=== PATIENT | male | born 1970 | race Caucasian/White ===

== ENCOUNTER 2017-01-14 18:49 | Inpatient (IN) | payer OTHER ==
[~2017-01-14] VITALS: Ht 160 cm; Wt 89.8 kg
[2017-01-14 19:27] LABS: BASOPHIL % 0.8 % (0-2); PLATELET COUNT 146 x10^3mcL (130-400); RED CELL DISTRIBUTION WIDTH 13.5 % (11.5-14.5); UA SPECIFIC GRAVITY 1.025 (1.005-1.035); microscopic required? YES; urine erythrocyte 2+ (NEGATIVE)
[2017-01-14 19:47] LABS: CALCIUM 8.9 mg/dL (8.5-10.1); CARBON DIOXIDE 28.4 mmol/L (21-32); CHLORIDE SERUM 102 mmol/L (98-107); CREATININE SERUM 0.7 mg/dL (0.7-1.3); GFR1 > 60 mL/min; GLUCOSE SERUM 194 mg/dL (74-106); POTASSIUM SERUM 3.8 mmol/L (3.5-5.1); SODIUM SERUM 141 mmol/L (136-145)
[2017-01-14 19:48] LABS: AMPHETAMINE QUAL UR NONE DETECTED (NEG <=1000)
[2017-01-14 19:53] LABS: ALKALINE PHOSPHATASE 134 U/L (46-116); ALT/SGPT 37 U/L (16-63); AST/SGOT 48 U/L (15-37); BILIRUBIN TOTAL 0.8 mg/dL (0.20-1.00); CHOLESTEROL 165 mg/dL (<200); CHOLESTEROL/HDL RATIO 2.9; HDL CHOLESTEROL 57 mg/dL (40-60); LIPASE 190 IU/L (73-393); TRIGLYCERIDES 86 mg/dL (<150)
[2017-01-14 19:58] LABS: ALBUMIN 3.3 g/dL (3.4-5.0)
[2017-01-14 19:59] LABS: T3 TOTAL 0.85 ng/mL
[2017-01-14 20:12] LABS: FREE T4 0.9 ng/dL (0.76-1.46); FREE THYROXINE INDEX 2.6 ug/dL (1.4-4.5); T4(THYROXINE) 7.1 ug/dL (4.7-13.3)
[2017-01-14] MEDS ORDERED: CYCLOBENZAPRINE10 MG PO (22:07)
[2017-01-14] MEDS ORDERED: ALLOPURINOL100 MG PO (22:07)
[2017-01-14] MEDS ORDERED: PROPRANOLOL HCL10 MG PO (22:08)
[2017-01-14] MEDS ORDERED: BAYER ASPIRIN R81 MG PO (22:08)
[2017-01-14] MEDS ORDERED: COLACE100 MG PO (22:08)
[2017-01-14] MEDS ORDERED: SIMVASTATIN10 M1 PO (22:08)
[2017-01-14] MEDS ORDERED: MIRALAX17 GM/Dose PO (22:09)
[2017-01-14 22:53] VITALS: BP 135/100
[2017-01-14 22:54] VITALS: BP 135/100
[2017-01-15 01:58] VITALS: BP 135/92
[2017-01-15 02:12] LABS: MAGNESIUM 1.2 mg/dL (1.8-2.4); PHOSPHOROUS 3.6 mg/dL (2.5-4.9)
[2017-01-15 04:59] VITALS: BP 131/99
[2017-01-15 05:56] LABS: BASOPHIL % 0.5 % (0-2); RED CELL DISTRIBUTION WIDTH 13.6 % (11.5-14.5)
[2017-01-15 06:13] LABS: PLATELET COUNT 128 x10^3mcL (130-400)
[2017-01-15 06:24] LABS: CALCIUM 8.3 mg/dL (8.5-10.1); CARBON DIOXIDE 28.7 mmol/L (21-32); CHLORIDE SERUM 103 mmol/L (98-107); GFR1 > 60 mL/min; GLUCOSE SERUM 184 mg/dL (74-106); POTASSIUM SERUM 4.3 mmol/L (3.5-5.1); SODIUM SERUM 139 mmol/L (136-145); URIC ACID 8.4 mg/dL (3.5-7.2)
[2017-01-15 09:35] VITALS: BP 102/66
[2017-01-15 16:55] VITALS: BP 121/94
[2017-01-15 21:46] VITALS: BP 125/92
[2017-01-16 05:59] LABS: BASOPHIL % 0.6 % (0-2); PLATELET COUNT 139 x10^3mcL (130-400); RED CELL DISTRIBUTION WIDTH 13.7 % (11.5-14.5)
[2017-01-16 06:11] VITALS: BP 122/90
[2017-01-16 06:24] LABS: CALCIUM 8.5 mg/dL (8.5-10.1); CARBON DIOXIDE 26.8 mmol/L (21-32); CHLORIDE SERUM 101 mmol/L (98-107); CREATININE SERUM 0.9 mg/dL (0.7-1.3); GFR1 > 60 mL/min; GLUCOSE SERUM 118 mg/dL (74-106); MAGNESIUM 1.9 mg/dL (1.8-2.4); POTASSIUM SERUM 4.7 mmol/L (3.5-5.1); SODIUM SERUM 135 mmol/L (136-145)
[2017-01-16 14:00] VITALS: BP 114/89
[2017-01-16 16:59] VITALS: BP 109/84
[2017-01-16 20:39] VITALS: BP 108/84
[2017-01-17 05:09] VITALS: BP 119/85
[2017-01-17 06:05] LABS: CALCIUM 8.7 mg/dL (8.5-10.1); CARBON DIOXIDE 26.3 mmol/L (21-32); CHLORIDE SERUM 101 mmol/L (98-107); GFR1 > 60 mL/min; GLUCOSE SERUM 120 mg/dL (74-106); MAGNESIUM 1.9 mg/dL (1.8-2.4); PHOSPHOROUS 4.4 mg/dL (2.5-4.9); POTASSIUM SERUM 4.9 mmol/L (3.5-5.1); SODIUM SERUM 134 mmol/L (136-145)
[2017-01-17 06:07] LABS: BASOPHIL % 0.4 % (0-2); PLATELET COUNT 149 x10^3mcL (130-400); RED CELL DISTRIBUTION WIDTH 13.9 % (11.5-14.5)
[2017-01-17 08:53] VITALS: BP 111/79
[2017-01-17] MEDS ORDERED: THI100 PO (10:06)
[2017-01-17] MEDS ORDERED: FOL1 PO (10:07)
[2017-01-17] MEDS ORDERED: LAC PO (10:07)
[2017-01-17] MEDS ORDERED: ATI1 PO (10:08)
[2017-01-17] MEDS ORDERED: COR3 PO (10:09)
[2017-01-17] MEDS ORDERED: ALD25 PO (10:09)
[2017-01-17] MEDS ORDERED: GLU500 PO (10:44)
[2017-01-17] MEDS ORDERED: CIP500 PO (10:47)
[2017-01-17 10:59] VITALS: BP 111/79
== END 2017-01-17 12:55 | disposition home or self-care (01) | DRG 280 ==
LOC: ED 18:49 → DU 22:07
PROVIDERS: Specialist; ADMIT Family Medicine
DX: K70.31 Alcoholic cirrhosis of liver with ascites (principal); N17.0 Acute kidney failure with tubular necrosis; I50.43 Acute on chronic combined systolic (congestive) and diastolic (congestive) heart failure; G92 Toxic encephalopathy; D69.6 Thrombocytopenia, unspecified; D64.9 Anemia, unspecified; F10.229 Alcohol dependence with intoxication, unspecified; E11.9 Type 2 diabetes mellitus without complications; E78.00 Pure hypercholesterolemia, unspecified; I11.0 Hypertensive heart disease with heart failure; Y90.0 Blood alcohol level of less than 20 mg/100 ml
CPT/HCPCS: 36600; 82962; 83880; 84439; G0480; J0696; J1885; J2060; J2270; J2405; J3010; J3411; J3475; J3490; J7030; Q0092

== ENCOUNTER 2017-01-18 20:15 | Emergency (ER) | payer OTHER ==
[~2017-01-18 20:15] MED LIST: ALD25 PO; ALLOPURINOL100 MG PO; ATI1 PO; BAYER ASPIRIN R81 MG PO; CIP500 PO; COLACE100 MG PO; COR3 PO; CYCLOBENZAPRINE10 MG PO; FOL1 PO; GLU500 PO; LAC PO; MIRALAX17 GM/Dose PO; PROPRANOLOL HCL10 MG PO; SIMVASTATIN10 M1 PO; THI100 PO
[2017-01-18 21:01] LABS: PLATELET COUNT 197 x10^3mcL (130-400); RED CELL DISTRIBUTION WIDTH 14.1 % (11.5-14.5)
[2017-01-18 21:12] LABS: CALCIUM 9.4 mg/dL (8.5-10.1); CARBON DIOXIDE 28.5 mmol/L (21-32); CHLORIDE SERUM 102 mmol/L (98-107); GFR1 > 60 mL/min; GLUCOSE SERUM 135 mg/dL (74-106); POTASSIUM SERUM 4.3 mmol/L (3.5-5.1); SODIUM SERUM 137 mmol/L (136-145)
[2017-01-18 21:17] LABS: ALKALINE PHOSPHATASE 142 U/L (46-116); ALT/SGPT 32 U/L (16-63); AST/SGOT 37 U/L (15-37); BILIRUBIN TOTAL 0.9 mg/dL (0.20-1.00); LIPASE 106 IU/L (73-393)
[2017-01-18 21:19] LABS: ALBUMIN 3.3 g/dL (3.4-5.0); TOTAL PROTEIN, SERUM 9.1 g/dL (6.4-8.2)
[2017-01-18 23:48] VITALS: BP 138/97
== END 2017-01-18 23:48 | disposition home or self-care (01) ==
LOC: ED 20:15
PROVIDERS: Emergency Medicine
DX: K70.31 Alcoholic cirrhosis of liver with ascites (principal); E78.00 Pure hypercholesterolemia, unspecified; E11.9 Type 2 diabetes mellitus without complications; I10 Essential (primary) hypertension
CPT/HCPCS: 83880; J1940; J2405; J3010; Q0092

== ENCOUNTER 2018-03-23 14:05 | Inpatient (IN) | payer OTHER ==
[~2018-03-23] VITALS: Ht 162.6 cm; Wt 77.2 kg
[2018-03-23 14:26] VITALS: Ht 162.6 cm; Wt 77.2 kg
[2018-03-23] MEDS ORDERED: METFORMIN HCL500 MG PO (17:21)
[2018-03-23 17:23] LABS: BASOPHIL % 1.5 % (0-2); PLATELET COUNT 143 x10^3mcL (130-400); RED CELL DISTRIBUTION WIDTH 13.6 % (11.5-14.5)
[2018-03-23 17:32] LABS: CALCIUM 8.6 mg/dL (8.5-10.1); CARBON DIOXIDE 28.6 mmol/L (21-32); CHLORIDE SERUM 101 mmol/L (98-107); CREATININE SERUM 0.9 mg/dL (0.7-1.3); GFR1 > 60 mL/min; GLUCOSE SERUM 129 mg/dL (74-106); SODIUM SERUM 138 mmol/L (136-145)
[2018-03-23 17:45] LABS: ALKALINE PHOSPHATASE 95 U/L (46-116); ALT/SGPT 29 U/L (16-63); AST/SGOT 33 U/L (15-37); BILIRUBIN TOTAL 1.1 mg/dL (0.20-1.00); FREE T4 1.08 ng/dL (0.76-1.46)
[2018-03-23 17:46] LABS: ALBUMIN 3.1 g/dL (3.4-5.0)
[2018-03-23 19:38] LABS: UA SPECIFIC GRAVITY 1.015 (1.005-1.035); microscopic required? YES; urine erythrocyte 1+ (NEGATIVE)
[2018-03-23 19:48] LABS: AMPHETAMINE QUAL UR POSITIVE (See below)
[2018-03-23 20:17] VITALS: BP 117/90
[2018-03-23 20:53] LABS: CHOLESTEROL/HDL RATIO 2.9; MAGNESIUM 1.8 mg/dL (1.8-2.4); PHOSPHOROUS 4.2 mg/dL (2.5-4.9)
[2018-03-24 05:48] VITALS: BP 135/102
[2018-03-24 06:20] LABS: BASOPHIL % 0.6 % (0-2); RED CELL DISTRIBUTION WIDTH 13.5 % (11.5-14.5)
[2018-03-24 06:35] LABS: PLATELET COUNT 121 x10^3mcL (130-400)
[2018-03-24 06:50] LABS: CALCIUM 8.7 mg/dL (8.5-10.1); CARBON DIOXIDE 28.2 mmol/L (21-32); CHLORIDE SERUM 105 mmol/L (98-107); CREATININE SERUM 0.9 mg/dL (0.7-1.3); GFR1 > 60 mL/min; GLUCOSE SERUM 153 mg/dL (74-106); MAGNESIUM 2.1 mg/dL (1.8-2.4); PHOSPHOROUS 4.7 mg/dL (2.5-4.9); SODIUM SERUM 142 mmol/L (136-145)
[2018-03-24 09:38] VITALS: BP 127/95
[2018-03-24 13:51] VITALS: BP 109/79; BP 109/9
[2018-03-24 17:08] VITALS: BP 116/85
[2018-03-24 22:15] VITALS: BP 106/72
[2018-03-25 06:19] VITALS: BP 114/78
[2018-03-25 06:40] LABS: BASOPHIL % 0.5 % (0-2); RED CELL DISTRIBUTION WIDTH 13.4 % (11.5-14.5)
[2018-03-25 06:42] LABS: PLATELET COUNT 105 x10^3mcL (130-400)
[2018-03-25 06:54] LABS: CALCIUM 8.5 mg/dL (8.5-10.1); CARBON DIOXIDE 26.5 mmol/L (21-32); CHLORIDE SERUM 102 mmol/L (98-107); GFR1 > 60 mL/min; GLUCOSE SERUM 229 mg/dL (74-106); MAGNESIUM 1.6 mg/dL (1.8-2.4); PHOSPHOROUS 4.8 mg/dL (2.5-4.9); POTASSIUM SERUM 3.4 mmol/L (3.5-5.1); SODIUM SERUM 138 mmol/L (136-145)
[2018-03-25 09:49] VITALS: BP 113/85
[2018-03-25 14:11] VITALS: BP 115/75
[2018-03-25 17:13] VITALS: BP 105/76
[2018-03-25 21:28] VITALS: BP 115/86
[2018-03-26 05:35] VITALS: BP 100/63
[2018-03-26 06:14] LABS: BASOPHIL % 0.7 % (0-2); RED CELL DISTRIBUTION WIDTH 13.5 % (11.5-14.5)
[2018-03-26 06:17] LABS: PLATELET COUNT 121 x10^3mcL (130-400)
[2018-03-26 06:24] LABS: CALCIUM 8.5 mg/dL (8.5-10.1); CARBON DIOXIDE 30.9 mmol/L (21-32); CHLORIDE SERUM 102 mmol/L (98-107); CREATININE SERUM 1.1 mg/dL (0.7-1.3); GFR1 > 60 mL/min; GLUCOSE SERUM 166 mg/dL (74-106); MAGNESIUM 1.6 mg/dL (1.8-2.4); PHOSPHOROUS 3.9 mg/dL (2.5-4.9); POTASSIUM SERUM 3.6 mmol/L (3.5-5.1); SODIUM SERUM 140 mmol/L (136-145)
[2018-03-26 08:26] VITALS: BP 98/66
[2018-03-26] MEDS ORDERED: SIMETHICONE80 MG CH (10:35)
[2018-03-26] MEDS ORDERED: LIB25 PO (10:48)
[2018-03-26 12:00] VITALS: BP 112/78
== END 2018-03-26 12:41 | disposition home or self-care (01) | DRG 280 ==
LOC: ED 14:05 → DU 18:39
PROVIDERS: Emergency Medicine; General Practice
DX: K70.31 Alcoholic cirrhosis of liver with ascites (principal); N17.0 Acute kidney failure with tubular necrosis; G92 Toxic encephalopathy; I50.43 Acute on chronic combined systolic (congestive) and diastolic (congestive) heart failure; E44.0 Moderate protein-calorie malnutrition; F10.229 Alcohol dependence with intoxication, unspecified; E11.65 Type 2 diabetes mellitus with hyperglycemia; F41.9 Anxiety disorder, unspecified; M10.9 Gout, unspecified; I11.0 Hypertensive heart disease with heart failure; Y90.0 Blood alcohol level of less than 20 mg/100 ml; I25.2 Old myocardial infarction; Z79.82 Long term (current) use of aspirin; Z68.34 Body mass index [BMI] 34.0-34.9, adult; Z79.84 Long term (current) use of oral hypoglycemic drugs; Z23 Encounter for immunization
CPT/HCPCS: 82962; 83880; 84439; 90658; G0480; J1940; J3475; Q0092

== ENCOUNTER 2018-04-20 12:35 | Inpatient (IN) | payer OTHER ==
[~2018-04-20] VITALS: Ht 162.6 cm; Wt 84.1 kg
[~2018-04-20 12:35] MED LIST changes: +LIB25 PO; +METFORMIN HCL500 MG PO; +SIMETHICONE80 MG CH
[2018-04-20 12:43] VITALS: Ht 162.6 cm; Wt 84.1 kg
[2018-04-20 15:30] LABS: BASOPHIL % 1.6 % (0-2); RED CELL DISTRIBUTION WIDTH 13.8 % (11.5-14.5)
[2018-04-20 15:35] LABS: PLATELET COUNT 126 x10^3mcL (130-400)
[2018-04-20 15:44] LABS: CALCIUM 8.5 mg/dL (8.5-10.1); CARBON DIOXIDE 29.5 mmol/L (21-32); CHLORIDE SERUM 104 mmol/L (98-107); GFR1 > 60 mL/min; GLUCOSE SERUM 123 mg/dL (74-106); POTASSIUM SERUM 4.2 mmol/L (3.5-5.1); SODIUM SERUM 139 mmol/L (136-145)
[2018-04-20 15:48] LABS: ALBUMIN 3.5 g/dL (3.4-5.0); ALKALINE PHOSPHATASE 99 U/L (46-116); ALT/SGPT 25 U/L (16-63); AST/SGOT 18 U/L (15-37); BILIRUBIN TOTAL 0.67 mg/dL (0.20-1.00)
[2018-04-20 15:51] LABS: TOTAL PROTEIN, SERUM 8.5 g/dL (6.4-8.2)
[2018-04-20] MEDS ORDERED: FUROSEMIDE20 MG PO (16:30)
[2018-04-20] MEDS ORDERED: INDOMETHACIN50 MG PO (16:30)
[2018-04-20] MEDS ORDERED: METFORMIN HCL1000 MG PO (16:31)
[2018-04-20] MEDS ORDERED: VIT D2 PO (16:32)
[2018-04-20] MEDS ORDERED: CVS GAS RELIEF PO (16:32)
[2018-04-20] MEDS ORDERED: ALDACTONE25 MG PO (16:33)
[2018-04-20 18:52] VITALS: BP 148/110
[2018-04-20 19:44] LABS: MAGNESIUM 1.6 mg/dL (1.8-2.4); PHOSPHOROUS 3.5 mg/dL (2.5-4.9)
[2018-04-20 20:37] VITALS: BP 131/93
[2018-04-20 21:01] LABS: UA SPECIFIC GRAVITY 1.025 (1.005-1.035); microscopic required? YES; urine erythrocyte 2+ (NEGATIVE)
[2018-04-20 23:57] VITALS: BP 131/93
[2018-04-21 05:14] VITALS: BP 127/96
[2018-04-21 06:27] LABS: BASOPHIL % 0.6 % (0-2); CALCIUM 8.5 mg/dL (8.5-10.1); CARBON DIOXIDE 28.3 mmol/L (21-32); CHLORIDE SERUM 103 mmol/L (98-107); CREATININE SERUM 0.9 mg/dL (0.7-1.3); GFR1 > 60 mL/min; GLUCOSE SERUM 122 mg/dL (74-106); MAGNESIUM 1.5 mg/dL (1.8-2.4); PLATELET COUNT 130 x10^3mcL (130-400); POTASSIUM SERUM 3.8 mmol/L (3.5-5.1); RED CELL DISTRIBUTION WIDTH 13.8 % (11.5-14.5); SODIUM SERUM 139 mmol/L (136-145)
[2018-04-21 08:00] VITALS: BP 126/95
[2018-04-21 18:26] VITALS: BP 128/99
[2018-04-21 20:52] VITALS: BP 128/96
[2018-04-22 05:12] VITALS: BP 122/85
[2018-04-22 09:40] VITALS: BP 116/79
[2018-04-22 14:00] VITALS: BP 121/78
[2018-04-22] MEDS ORDERED: LASIX20 MG PO (15:08)
[2018-04-22] MEDS ORDERED: GAS RELIEF 8080 MG PO (15:08)
[2018-04-22] MEDS ORDERED: TUMS REGULAR S500 MG CH (15:08)
[2018-04-22] MEDS ORDERED: DULCOLAX10 M1 RC (15:08)
== END 2018-04-22 16:18 | disposition home or self-care (01) | DRG 280 ==
LOC: ED 12:35 → DU 16:31
PROVIDERS: Emergency Medicine; Internal Medicine
DX: K70.31 Alcoholic cirrhosis of liver with ascites (principal); N17.0 Acute kidney failure with tubular necrosis; F10.20 Alcohol dependence, uncomplicated; E11.65 Type 2 diabetes mellitus with hyperglycemia; E83.42 Hypomagnesemia; R80.9 Proteinuria, unspecified; I11.0 Hypertensive heart disease with heart failure; F17.210 Nicotine dependence, cigarettes, uncomplicated; F15.90 Other stimulant use, unspecified, uncomplicated; F12.90 Cannabis use, unspecified, uncomplicated; I50.42 Chronic combined systolic (congestive) and diastolic (congestive) heart failure; M10.9 Gout, unspecified; Y90.0 Blood alcohol level of less than 20 mg/100 ml; Z68.36 Body mass index [BMI] 36.0-36.9, adult; Z79.84 Long term (current) use of oral hypoglycemic drugs; Z91.14 Patient's other noncompliance with medication regimen; Z79.899 Other long term (current) drug therapy; Z71.41 Alcohol abuse counseling and surveillance of alcoholic
CPT/HCPCS: 82962; 83880; 90732; J0696; J1940; J7620; Q0092

== ENCOUNTER 2018-06-07 12:49 | Emergency (ER) | payer OTHER ==
[~2018-06-07] VITALS: Ht 160 cm; Wt 93.0 kg
[~2018-06-07 12:49] MED LIST changes: +ALDACTONE25 MG PO; +CVS GAS RELIEF PO; +DULCOLAX10 M1 RC; +FUROSEMIDE20 MG PO; +GAS RELIEF 8080 MG PO; +INDOMETHACIN50 MG PO; +LASIX20 MG PO; +METFORMIN HCL1000 MG PO; +TUMS REGULAR S500 MG CH; +VIT D2 PO
[2018-06-07 12:58] VITALS: Ht 160 cm; Wt 93.0 kg
[2018-06-07 14:00] LABS: BASOPHIL % 0.7 % (0-2)
[2018-06-07 14:01] LABS: PLATELET COUNT 126 x10^3mcL (130-400); RED CELL DISTRIBUTION WIDTH 15.9 % (11.5-14.5)
[2018-06-07 14:28] LABS: CARBON DIOXIDE 28.5 mmol/L (21-32); CHLORIDE SERUM 104 mmol/L (98-107); CREATININE SERUM 0.8 mg/dL (0.7-1.3); GFR1 > 60 mL/min; GLUCOSE SERUM 137 mg/dL (74-106); POTASSIUM SERUM 3.9 mmol/L (3.5-5.1); SODIUM SERUM 143 mmol/L (136-145)
[2018-06-07 14:32] LABS: ALKALINE PHOSPHATASE 97 U/L (46-116); ALT/SGPT 24 U/L (16-63); AST/SGOT 23 U/L (15-37); BILIRUBIN TOTAL 1.09 mg/dL (0.20-1.00)
[2018-06-07 14:33] LABS: ALBUMIN 3.2 g/dL (3.4-5.0); TOTAL PROTEIN, SERUM 8.3 g/dL (6.4-8.2)
[2018-06-07 15:23] LABS: AMPHETAMINE QUAL UR NONE DETECTED (See below)
[2018-06-07 15:41] VITALS: BP 139/95
== END 2018-06-07 15:41 | disposition home or self-care (01) ==
LOC: ED 12:49
PROVIDERS: Emergency Medicine
DX: K70.31 Alcoholic cirrhosis of liver with ascites (principal); I11.9 Hypertensive heart disease without heart failure; F10.20 Alcohol dependence, uncomplicated; E11.9 Type 2 diabetes mellitus without complications; F41.9 Anxiety disorder, unspecified; E78.00 Pure hypercholesterolemia, unspecified
CPT/HCPCS: G0480; J1940; Q0092

== ENCOUNTER 2019-11-16 23:55 | Inpatient (IN) | payer OTHER ==
[~2019-11-16] VITALS: Ht 160 cm; Wt 80.7 kg
[2019-11-17 00:01] VITALS: Ht 160 cm; Wt 80.7 kg
[2019-11-17 01:05] LABS: BASOPHIL % 0.4 % (0-2); RED CELL DISTRIBUTION WIDTH 13.4 % (11.5-14.5)
[2019-11-17 01:06] LABS: PLATELET COUNT 93 x10^3mcL (130-400)
[2019-11-17 01:07] LABS: CALCIUM 7.9 mg/dL (8.5-10.1); CARBON DIOXIDE 24.2 mmol/L (21-32); CHLORIDE SERUM 96 mmol/L (98-107); CREATININE SERUM 1.1 mg/dL (0.7-1.3); GFR1 > 60 mL/min; GLUCOSE SERUM 191 mg/dL (74-106); POTASSIUM SERUM 3.8 mmol/L (3.5-5.1); SODIUM SERUM 131 mmol/L (136-145)
[2019-11-17 01:11] LABS: ALKALINE PHOSPHATASE 196 U/L (46-116); ALT/SGPT 38 U/L (16-63); AST/SGOT 44 U/L (15-37); BILIRUBIN TOTAL 2.23 mg/dL (0.20-1.00)
[2019-11-17 01:31] LABS: ALBUMIN 2.5 g/dL (3.4-5.0); TOTAL PROTEIN, SERUM 8.3 g/dL (6.4-8.2)
[2019-11-17] MEDS ORDERED: CARVEDILOL ER40 MG PO (01:40)
[2019-11-17] MEDS ORDERED: MITIGARE0.6 MG PO (01:41)
[2019-11-17] MEDS ORDERED: ATORVASTATIN CA40 M1 PO (01:42)
[2019-11-17] MEDS ORDERED: PROTONIX40 MG/Pac1 PO (01:43)
[2019-11-17] MEDS ORDERED: HORIZANT300 MG PO (01:43)
[2019-11-17] MEDS ORDERED: ZESTRIL5 MG PO (01:43)
[2019-11-17 01:52] LABS: microscopic required? YES; urine erythrocyte 1+ (NEGATIVE)
[2019-11-17 05:49] LABS: AMPHETAMINE QUAL UR NONE DETECTED (See below)
[2019-11-17 12:50] VITALS: BP 113/70
[2019-11-17 16:48] VITALS: BP 110/67
[2019-11-17 19:42] VITALS: BP 100/70
[2019-11-17 20:21] VITALS: BP 140/94
[2019-11-17 21:59] VITALS: BP 123/81
[2019-11-18 05:06] VITALS: BP 98/66
[2019-11-18 07:19] LABS: BASOPHIL % 0.4 % (0-2); RED CELL DISTRIBUTION WIDTH 13.8 % (11.5-14.5)
[2019-11-18 07:40] LABS: CALCIUM 6.8 mg/dL (8.5-10.1); CARBON DIOXIDE 22.6 mmol/L (21-32); CHLORIDE SERUM 101 mmol/L (98-107); CREATININE SERUM 1.3 mg/dL (0.7-1.3); GFR1 > 60 mL/min; GLUCOSE SERUM 213 mg/dL (74-106); MAGNESIUM 1.1 mg/dL (1.8-2.4); POTASSIUM SERUM 3.7 mmol/L (3.5-5.1); SODIUM SERUM 134 mmol/L (136-145)
[2019-11-18 08:21] VITALS: BP 128/80
[2019-11-18] MEDS ORDERED: CLEOCIN HCL300 MG PO (10:08)
[2019-11-18 10:48] LABS: PLATELET COUNT 61 x10^3mcL (130-400)
[2019-11-18 12:14] VITALS: BP 106/64
[2019-11-18 16:20] VITALS: BP 118/70
[2019-11-18 16:24] VITALS: BP 118/70
== END 2019-11-18 17:04 | disposition home or self-care (01) | DRG 364 ==
LOC: ED 23:55 → DU 11-17 03:01
PROVIDERS: Emergency Medicine; ADMIT Internal Medicine; ATTEND Internal Medicine
PROC: 0J9B0ZZ Drainage of Perineum Subcutaneous Tissue and Fascia, Open Approach (ICD-10-PCS; principal; 2019-11-17)
DX: L03.315 Cellulitis of perineum (principal); D69.6 Thrombocytopenia, unspecified; E11.65 Type 2 diabetes mellitus with hyperglycemia; K74.60 Unspecified cirrhosis of liver; E83.42 Hypomagnesemia; E83.51 Hypocalcemia; L02.215 Cutaneous abscess of perineum; E78.00 Pure hypercholesterolemia, unspecified; F29 Unspecified psychosis not due to a substance or known physiological condition; I10 Essential (primary) hypertension; E87.1 Hypo-osmolality and hyponatremia; D63.8 Anemia in other chronic diseases classified elsewhere; F41.9 Anxiety disorder, unspecified; Z79.899 Other long term (current) drug therapy
CPT/HCPCS: 82962; C9113; G0378; J1170; J1885; J2001; J2270; J2405; J2543; J3370; J7030; J7050; Q0092; Q9967

== ENCOUNTER 2019-11-27 16:43 | Emergency (ER) | payer OTHER ==
[~2019-11-27] VITALS: Ht 167.6 cm; Wt 82.1 kg
[~2019-11-27 16:43] MED LIST changes: +ATORVASTATIN CA40 M1 PO; +CARVEDILOL ER40 MG PO; +CLEOCIN HCL300 MG PO; +HORIZANT300 MG PO; +MITIGARE0.6 MG PO; +PROTONIX40 MG/Pac1 PO; +ZESTRIL5 MG PO
[2019-11-27 17:04] VITALS: Ht 167.6 cm; Wt 82.1 kg
[2019-11-27 18:03] VITALS: BP 125/89
== END 2019-11-27 18:03 | disposition home or self-care (01) ==
LOC: ED 16:43
DX: M54.5 Low back pain (principal); I10 Essential (primary) hypertension; E11.9 Type 2 diabetes mellitus without complications; E78.00 Pure hypercholesterolemia, unspecified